=== PATIENT | male | born 1995 | race Caucasian/White ===

== ENCOUNTER 2024-04-27 05:58 | Emergency (ER) | payer OTHER, SELFPAY ==
--- NOTE | ~2024-04-27 | XR_ITS ---
XR humerus RT 04/27/2024 06:14 INDICATION: Right arm pain and bruising PROCEDURE: 2 views right humerus COMPARISON: No prior studies for comparison. FINDINGS: Fracture, dislocation or subluxation is not identified. The soft tissues appear within norm al limits. No foreign bodies are identified. IMPRESSION: 1: NO ACUTE BONE OR JOINT ABNORMALITY IDENTIFIED. Reviewed, dictated and finalized at location A. ER SHOP OPERATOR
--- OUTSIDE RECORDS SUMMARY | 2024-04-27 06:00 | XMS_ITS | Referral Summary ---
Author Organization [facility] Address [address] [place] [id number] Care Team Providers Care House Calls Nurse Name Role Phone Terrell Small MD Primary Care Provider Allergies No known active allergies Medications buPROPion XL (WELLBUTRIN XL) 150 mg 24 hr tabletIndications: Severe episode of recurrent major depressive disorder, without psychotic features (HCC),Attention deficit hyperactivity disorder (ADHD), predominantly hyperactive type Take 1 tablet (150 mg total) by mouth every morning 90 tablet 1 Active ARIPiprazole (ABILIFY) 15 mg tabletIndications: Bipolar affective disorder, currently depressed, moderate (CMS/HCC) (HCC) Take 1 tablet (15 mg total) by mouth daily 90 tablet 1 Active cholecalciferol (VITAMIN D-3) 2000 unit tabletIndications: Vitamin D Deficiency Take 1 tablet (2,000 Units total) by mouth daily Pleas take after finishing 12 weeks of high dose vitamin D (50,000 units/week) therapy 180 tablet 1 1 Active FLUoxetine (PROzac) 20 mg tabletIndications: Generalized anxiety disorder,Severe episode of recurrent major depressive disorder, without psychotic features (HCC),Bipolar affective disorder, currently depressed, moderate (CMS/HCC) (HCC) Take 1 tablet (20 mg total) by mouth daily Renewal provider is dr small 90 tablet 1 Active Active Problems Problem Noted Date Diagnosed Date Generalized anxiety disorder 04/05/2020 Assessment & Plan (10/05/2020 2:58 PM CDT): - big improvement in his symptoms - well controlled with current medications - currently on Prozac 20 mg daily - continue current medication Assessment & Plan (07/06/2020 11:40 PM CDT): - big improvement in his symptoms - well controlled with current medications - currently on Prozac 20 mg daily - continue current medication Assessment & Plan (05/07/2020 2:29 PM BODY PRESS OPERATOR): - improvement in his symptoms - still has some problem with attention - currently on Fluoxetine 10 mg daily --> increase to 20 mg daily - follow up in 3 months Bipolar affective disorder, currently depressed, moderate (CMS/[facility]) 04/05/2020 Assessment & Plan (10/07/2020 11:54 PM CDT): - doing much better with mood stability since the start of medications - he has hx of past hospitalizations - current medications Prozac 20mg daily, Wellbutrin XL 150mg daily, Abilify 15mg daily - happy with the outcomes - continue with current medications Assessment & Plan (07/06/2020 11:41 PM CDT): - doing much better with depression since the start of medications - he has hx of past hospitalizations - current medications Prozac 20mg daily, Wellbutrin XL 150mg daily, Abilift 15md daily - he has an appointment with psychiatry in mid July - happy with the outcomes Assessment & Plan (06/05/2020 8:25 AM BODY PRESS OPERATOR): - doing much better with depression since the start of medications - depression much better and no recent manic episodes - he has hx of past hospitalizations - continue with Abilify 10 mg daily - Increase current Fluoxetine from 10 mg daily to 20 mg daily - he has an appointment with psychiatry in mid June Assessment & Plan (05/07/2020 2:31 PM BODY PRESS OPERATOR): - states in the past he used to be on Fluoxetine 10 mg and Abilify 10 mg - doing much better with depression since the start of medications - he has hx of past hospitalizations - continue with Abilify 10 mg daily - Increase Fluoxetine from 10 mg daily to 20 mg daily - he has an appointment with psychiatry in 2 months Assessment & Plan (04/05/2020 9:53 AM BODY PRESS OPERATOR): - states in the past he used to be on Fluoxetine 10 mg and Abilify 10mg - he will need a psychiatrist, will place referral for this Severe episode of recurrent major depressive disorder, without psychotic features 04/05/2020 Assessment & Plan (10/05/2020 2:58 PM CDT): - significant improvement in depression since being on medications - long history of depression as well since childhood along with coexisting bipolar disorder - currently on Prozac 20 mg daily, Wellbutrin XL 150 mg daily - has appointment with psychiatry in mid July for assistance Assessment & Plan (07/06/2020 11:41 PM CDT): - significant improvement in depression since being on medications - long history of depression as well since childhood along with coexisting bipolar disorder - currently on Prozac 20 mg daily, Wellbutrin XL 150 mg daily - has appointment with psychiatry in mid July for assistance Assessment & Plan (06/05/2020 8:26 AM BODY PRESS OPERATOR): - significant improvement in depression since being on medications - long history of depression as well since childhood along with coexisting bipolar disorder - currently on Fluoxetine 10mg --> increase to 20mg daily to help with anxiety as well and focusing - no SI, HI, knows to seek help if needed by calling 911 - has appointment with psychiatry in mid june Assessment & Plan (05/07/2020 2:29 PM BODY PRESS OPERATOR): - significant improvement in depression since restarting his medications - currently on Fluoxetine 10mg --> increase to 20mg daily - long history of depression as well since childhood - he also has comorbid history of Bipolar disorder - no SI, HI, knows to seek help if needed by calling 911 - follow up in 3 months - has appointment with psychiatry in 2 months Assessment & Plan (04/05/2020 9:57 AM BODY PRESS OPERATOR): - severe on PHQ-9 - long history of depression as well since childhood - he also has comorbid history of Bipolar disorder - he used to be on Fluoxetine 10mg Asperger's syndrome 04/05/2020 Assessment & Plan (04/05/2020 9:52 AM BODY PRESS OPERATOR): - chronic condition - pretty high functioning - has completed college, pretty interactive but describes it as a hard work to talk to people Attention deficit hyperactiv ity disorder (ADHD), predominantly hyperactive type 04/05/2020 Assessment & Plan (10/07/2020 11:54 PM CDT): - he used to be on Ritalin as a child - he had a suicide attempt on 5th grade and was taken off the Ritalin - he has noticed difficulty with concentration and focusing and not with hyperactivity lately - some improvement with adequate treatment of anxiety and depression - still has some struggles - Addition of wellbutrin has helped his ADHD, pleased with it - continue with current therapy Assessment & Plan (07/06/2020 11:42 PM CDT): - he used to be on Ritalin as a child - he had a suicide attempt on 5th grade and was taken off the Ritalin - he has noticed difficulty with concentration and focusing and not with hyperactivity lately - some improvement with adequate treatment of anxiety and depression - still has some struggles - to be managed by psychiatry in upcoming viist Assessment & Plan (06/05/2020 8:24 AM BODY PRESS OPERATOR): - he used to be on Ritalin as a child - he had a suicide attempt on 5th grade and was taken off the Ritalin - he has noticed difficulty with concentration and focusing and not with hyperactivity lately - will start on Wellbutrin XL 150mg daily - discussed to increase his prozac to 20mg daily as well Assessment & Plan (04/05/2020 9:51 AM BODY PRESS OPERATOR): - he used to be on Ritalin as a child - he had a suicide attempt on 5th grade and was taken off the Ritalin - he has been able to function pretty well, finishing college - he does not feel like he needs to be medicated at this time for ADHD Vitamin D deficiency 04/05/2020 Overview (04/05/2020): - noted on 03/2020 with level of 19 Assessment & Plan (10/07/2020 11:55 PM CDT): - compliant with medication - finished 50 K international units vitamin D2 weekly for 12 weeks - he will need to be on daily low dose vitamin D as instructed, 2000 international units Vitamin D3 daily indefinetly Assessment & Plan (05/07/2020 2:13 PM BODY PRESS OPERATOR): - compliant with medication - he is now on the 50 K weekly for 12 weeks - knows to take 2000 units daily afterwards Immunizations Name Administration Dates Next Due DTP / HiB 1997,1997 Hep B, Adolescent or Pediatric 1997,1996 Influenza, Quadrivalent, Spl it, Preservative Free, Intramuscular 12/02/2019,01/10/2019 OPV 1997,1997 Pfizer SARS-CoV-2 Monovalent Vaccination (12+ Yrs) PURPLE 07/13/2020,06/22/2020 Social History Tobacco Use Types Packs/Day Years Used Date Smoking Tobacco: Never Smokeless Tobacco: Never Alcohol Use Standard Drinks/Week Comments Never 0 (1 standard drink = 0.6 oz pur e alcohol) AUDIT-C Answer Date Recorded Q1: How often do you have a drink containing alc ohol? Never 04/05/2020 Average Number of Drinks Not on file 021 Frequency of Binge Drinking Not on file 09/2020 PHQ-2 Answer Date Recorded PHQ-2 Total Score (If total score is 3 or more points, staff should administer the PHQ-9) 0 10/05/2020 Personal Safety Answer Date Recorded Getting School Help Needed Not on file 05/29 Sex and Gender Information Value Date Recorded Sex Assigned at Not on file Legal Sex Male 10:44 AM CDT Gender Identity Not on file Sexual Orientation Not on file Last Filed Vital Signs Vital Sign Reading Time Taken Comments Blood Pressure 120/70 10/05/2020 1:53 PM CDT Pulse 91 10/05/2020 1:53 PM CDT Temperature 35.9 ??C (96.6 ??F) 05/07/2020 1:54 PM CS T Respiratory Rate 12 10/05/2020 1:53 PM CDT Oxygen Saturation 97% 10/05/2020 1:53 PM CDT Inhaled Oxygen Concentration - - Weight 76.7 kg (169 lb 3.2 oz) 10/05/2020 1:53 P M CDT Height 181.5 cm (5' 11.46 ) 10/05/2020 1:53 PM C DT Body Mass Index 23.3 10/05/2020 1:53 PM CDT Plan of Treatment Not on file Insurance [facility] Address: [facility] [address] [place] [phone] Care Teams House Calls Nurse Relationship Specialty Start Date End Date Terrell Small MD PCP - General Family Medicine 04/05/20
--- OUTSIDE RECORDS SUMMARY | 2024-04-27 06:00 | XMS_ITS | Clinical Summary ---
Author Organization [facility] Address [address] [place] [phone] Care Team Providers Care Service Electrician Name Role Phone Terrell Small MD Primary [...] medication Assessment & Plan (05/07/2020 2:29 PM HOTEL RESERVATIONIST): - improvement in his symptoms - still has some problem with attention - currently on Fluoxetine 10 mg daily --> increase to 20 mg daily - follow up in 3 months Bipolar affective disorder, currently depressed, moderate (CMS/[facility]) 04/05/2020 Assessment & Plan (10/07/2020 11:54 PM [...] outcomes Assessment & Plan (06/05/2020 8:25 AM HOTEL RESERVATIONIST): - doing much better with depression since the start of medications - depression much better and no recent manic episodes - he has hx of past hospitalizations - continue with Abilify 10 mg daily - Increase current Fluoxetine from 10 mg daily to 20 mg daily - he has an appointment with psychiatry in mid June Assessment & Plan (05/07/2020 2:31 PM HOTEL RESERVATIONIST): - states in the past he used [...] months Assessment & Plan (04/05/2020 9:53 AM HOTEL RESERVATIONIST): - states in the past he used [...] assistance Assessment & Plan (06/05/2020 8:26 AM HOTEL RESERVATIONIST): - significant improvement in depression since being [...] june Assessment & Plan (05/07/2020 2:29 PM HOTEL RESERVATIONIST): - significant improvement in depression since restarting [...] months Assessment & Plan (04/05/2020 9:57 AM HOTEL RESERVATIONIST): - severe on PHQ-9 - long history of depression as well since childhood - he also has comorbid history of Bipolar disorder - he used to be on Fluoxetine 10mg Asperger's syndrome 04/05/2020 Assessment & Plan (04/05/2020 9:52 AM HOTEL RESERVATIONIST): - chronic condition - pretty high functioning [...] viist Assessment & Plan (06/05/2020 8:24 AM HOTEL RESERVATIONIST): - he used to be on Ritalin [...] well Assessment & Plan (04/05/2020 9:51 AM HOTEL RESERVATIONIST): - he used to be on Ritalin [...] indefinetly Assessment & Plan (05/07/2020 2:13 PM HOTEL RESERVATIONIST): - compliant with medication - he is now on the 50 K weekly for 12 weeks - knows to take 2000 units daily afterwards Immunizations Name Administration Dates Next Due DTP / HiB 1997,1997 Hep B, Adolescent or Pediatric 1997,1996 Influenza, Quadrivalent, Spl it, Preservative Free, Intramuscular 12/02/2019,01/10/2019 OPV 1997,1997 Pfizer SARS-CoV-2 Monovalent Vaccination (12+ Yrs) PURPLE 07/13/2020,06/22/2020 Medical History Medical History Date Comments Depression 2015 Family History Medical History Relation Name Comments No Known Problems Father No Known Problems Mother Relation Name Status Comments Father Alive Mother Alive Social History Tobacco Use Types Packs/Day Years [...] on file Sexual Orientation Not on file Obstetrics History Last Filed Vital Signs Vital Sign Reading [...] 10/05/2020 1:53 PM CDT Plan of Treatment Health Maintenance Due Date Last Done Comments Hepatitis C Screening 1997 DTaP/Tdap/Td Vaccine (3 - Tdap) 02/29/2008 1997, 1997 Varicella Vaccines (1 of 2 - 13+ 2-dose series) 2010 Regular Well Visit/Exam 18-64 2015 Depression Screening 10/05/2021 10/05/2020, 07/05/2020, 06/05/2020, Additional history exists Covid-19 Vaccine (2023- season) 2023 07/13/2020, 06/22/2020 Influenza Vaccine (#1) 2023 12/02/2019, 2018 HPV Vaccines Aged Out No longer eligi ble based on patient's age to complete this topic Pneumococcal vaccine <65 Aged Out No longer eligible based on patient's age to complete this topic Insurance [facility] Care Teams Service Electrician Relationship Specialty Start Date End Date Terrell Small MD PCP - General Family Medicine 04/05/20
[2024-04-27 06:03] VITALS: BP 126/77; PULSE 71; RESP 20; TEMP 36.6; O2SAT 99
--- OUTSIDE RECORDS SUMMARY | 2024-04-27 07:49 | XMS_ITS | Encounter Summary ---
[facility] Organization [facility] Address [address] [place] [address] Care Team Providers Care Medical Receptionist Medical Assistant Name Role Phone Opal Bailey DO Primary Care Provider [phone] Reason for Referral * Behavioral Health (Routine) - Closed Specialty Diagnoses / Procedures Referred By Parker t Referred To Contact Behavioral Health Diagnoses Bipolar 1 disorder (CMS/HHS/HCC) Fatoumata Garcia CRNP Phone: tel: fax: [facility] - Outpatient Services - [place] [address] [place] [address] [address] Phone: tel: fax: Referral ID Status Reason Start Date Expiration Date V isits Requested Visits Authorized [id number] Closed Specialty Services Required 12/16/2023 12/17/[phone] Encounter Details Date Type Department Care Team (Late st Contact Info) Description 12/16/2023 [facility] [address] [place] [address] [phone] Fatoumata Garcia CRNP [address] [place] [phone] Bipolar 1 disorder (CMS/HHS/HCC) (Primary Dx) Social History Tobacco Use Types Packs/Day Years Used Date Smoking Tobacco: Never Smokeless Tobacco: Never Comments:one cigarette. Rest was ? nicotine? Alcohol Use Standard Drinks/Week Comments Not Currently 2 (1 standard drink = 0.6 oz pure alcohol) Ill need my mom to answer this better. Panicking. [facility] Utilities Answer Date Recorded In the past 12 months has th e electric, gas, oil, or water company threatened to shut off services in your home? No 12/11/2023 AUDIT-C Answer Date Recorded Q1: How often do you have a drink containing alc ohol? Monthly or less 12/11/2023 Q2: How many drinks containi ng alcohol do you have on a typical day when you are drinking? 1 or 2 12/11/2023 Q3: How often do you have si x or more drinks on one occasion? Never 12/11/2023 Overall Financial Resource Strain (CARDIA) Answe r Date Recorded How hard is it for you to pa y for the very basics like food, housing, medical care, and heating? Not very hard 12/11/2023 PHQ-2 Answer Date Recorded PHQ-2 Total Score 2 10/16/2023 Hunger Vital Sign Answer Date Recorded Within the past 12 months, y ou worried that your food would run out before you got the money to buy more. Never true 12/11/19 24 Within the past 12 months, t he food you bought just didn't last and you didn't have money to get more. Never true 12/11/2023 PRAPARE - Transportation Answer Date Re corded In the past 12 months, has l ack of transportation kept you from medical appointments or from getting medications? No 11/28 In the past 12 months, has l ack of transportation kept you from meetings, work, or from getting things needed for daily living? No 12/11/2023 Housing Stability Vital Sign Answer Raul e Recorded In the last 12 months, was t here a time when you were not able to pay the mortgage or rent on time? No 05/11/2023 In the last 12 months, how many places have you lived? 1 05/11/2023 In the last 12 months, was t here a time when you did not have a steady place to sleep or slept in a long term (including now)? No 05/11/2023 Housing Stability Vital Sign Answer Raul e Recorded In the last 12 months, was t here a time when you were not able to pay the mortgage or rent on time? No 12/11/2023 In the past 12 months, how m any times have you moved where you were living? 0 12/11/2023 At any time in the past [address] [facility], were you homeless or living in a long term (including now)? No 12/11/2023 Sex and Gender Information Value Date Recorded Sex Assigned at Male 10/22/2021 2:31 PM EDT Legal Sex Male 8:46 AM EDT Gender Identity Male 10/22/2021 2:31 PM EDT Sexual Orientation Bisexual 12/19/2022 10 :03 AM EDT documented as of this encounter Plan of Treatment Upcoming Encounters Date Type Department Care Team (Late st Contact Info) Description 05/20/2024 1:00 PM EST Telemedicine [facility] [address] [place] [phone] Fatoumata Garcia CRNP [address] [place] [address] [phone] Scheduled Referrals Name Type Priority Associated Diagnoses Order Schedule Ambulatory Referral to Specialty Behavioral Health Outpatient Referral Routine Bipolar 1 disorder (CMS/HHS/HCC) Expected: 12/16/2023, Expires: 12/15/2025 documented as of this encounter Visit Diagnoses Diagnosis Bipolar 1 disorder (CMS/HHS/HCC)- Primary documented in this encounter Care Teams Medical Receptionist Medical Assistant Relationship Specialty Start Date End Date Opal Bailey DO [address] [facility] [place] [phone] PCP - General Family Medicine 10/01/22 documented as of this encounter
--- OUTSIDE RECORDS SUMMARY | 2024-04-27 07:49 | XMS_ITS | Referral Summary ---
[facility] [address] [place] [address] Care Team Providers Care Direct Selling Counselor Name Role Phone Opal Bailey DO Primary Care Provider [phone] Encounters Date Type Department Care Team Description 04/12/2024 3:00 PM EST Telemedicine [facility] [employer] [facility] [address] [place] [phone] Fatoumata Garcia CRNP Bipolar 1 disorder ([facility]/HCC) (Primary Dx); MARIA D (generalized anxiety disorder) 03/29/2024 11:20 AM EST Telemedicine [facility] [employer] [facility] [address] [place] [address] [phone] Fatoumata Garcia CRNP Bipolar 1 disorder ([facility]/HCC) (Primary Dx); MARIA D (generalized anxiety disorder) 03/21/2024 Telephone [facility] [employer] [facility] [address] [place] [address] [address] [phone] Fatoumata Garcia CRNP [facility] paperwork 03/21/2024 Telephone [facility] [employer] [facility] [address] [place] [phone] Fatoumata Garcia CRNP 03/16/2024 Plan of Care Documentation [facility] [employer] [facility] [address] [place] [phone] 03/16/2024 11:20 AM EST Telemedicine [facility] [employer] [facility] [address] [place] [address] [phone] Fatoumata Garcia CRNP Bipolar 1 disorder (CMS/HHS/HCC) (Primary Dx); Asperger syndrome (HHS/HCC); MARIA D (generalized anxiety disorder); Grief 03/15/2024 Plan of Care Documentation [facility] [place] [facility] [address] [place] [phone] 03/09/2024 2:00 PM EST Office Visit [facility] [address] [facility] [place] [phone] Shannon Kim CRNP Tinea pedis of right foot (Primary Dx); Viral URI 02/12/2024 11:00 AM EST Telemedicine [facility] - [place] [address] [place] [address] [phone] Meliton Quiñones PsyD Bipolar affective disorder, current episode hypomanic (CMS/HHS/HCC) (Primary Dx); Attention deficit hyperactivity disorder (ADHD), unspecified ADHD type; Asperger syndrome (HHS/HCC); MARIA D (generalized anxiety disorder) 02/05/2024 8:20 AM EST Telemedicine [facility] [address] [place] [phone] Fatoumata Garcia CRNP Bipolar 1 disorder (CMS/HHS/HCC) (Primary Dx); Anxiety; Attention deficit hyperactivity disorder (ADHD), unspecified ADHD type 02/03/2024 Telephone [facility] [address] [phone] Fatoumata Garcia CRNP [employer] FMLA Form 01/28/2024 8:30 AM EDT - 01/28/2024 11:59 PM EDT Hospital Encounter [facility] - Outpatient Services - [place] [address] [place] [address] [phone] Abrahan Rollins MD Bipolar affective disorder, current episode hypomanic (CMS/HHS/HCC) (Primary Dx); Bipolar 1 disorder (CMS/HHS/HCC) Discharge Disposition: Home or Self Care 01/27/2024 8:22 AM EDT - 01/27/2024 11:59 PM EDT Hospital Encounter [facility] - Outpatient Services - [place] [address] [place] [address] [phone] Abrahan Rollins MD Bipolar affective disorder, current episode hypomanic (CMS/HHS/HCC) (Primary Dx) Discharge Disposition: Home or Self Care from Last 3 Months Allergies No known active allergies Medications sildenafiL (VIAGRA) 25 mg tabletIndicatio ns:Other male erectile dysfunction Take 1 tablet (25 mg total) by mouth daily as needed for erectile dysfunction 30 tablet 1 10/28/19 24 Active famotidine (PEPCID) 20 mg tabletIndicatio ns:Gastroesopha geal reflux disease without esophagitis Take 1 tablet (20 mg total) by mouth 2 (two) times a day 180 tablet 2 10/28/19 24 Active ARIPiprazole (ABILIFY) 20 mg tabletIndicatio ns:Bipolar 1 disorder (CMS/HHS/HCC) Take 1 tablet (20 mg total) by mouth daily 90 tablet 01/28/20 24 Active lamoTRIgine (LaMICtal) 200 mg tablet Take 1 tablet (200 mg total) by mouth daily 90 tablet 02/05/20 24 025 Active FLUoxetine (PROzac) 40 mg capsule Take 1 capsule (40 mg total) by mouth daily 90 capsule 03/16/20 24 025 Active traZODone (DESYREL) 50 mg tabletIndicatio ns:Insomnia, unspecified type TAKE 1 TABLET BY MOUTH EVERY DAY AT BEDTIME NEEDED FOR SLEEP 90 tablet 04/05/19 25 Active traZODone (DESYREL) 50 mg tabletIndicatio ns:Insomnia, unspecified type TAKE 1 TABLET BY MOUTH NIGHTLY NEEDED FOR SLEEP 30 tablet 03/07/20 24 025 Discontinued Active Problems Problem Noted Date Diagnosed Date Gastroesophageal reflux disease without esophagi tis 08/27/2023 Tobacco use 08/27/2023 Vapes non-nicotine containing substance 02/12/20 Muscle weakness 09/02/2021 Other specified behavioral problem 09/02/2021 Palpitations 09/02/2021 Hyperopia 09/02/2021 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) 021 ADHD (attention deficit hyperactivity disorder) 1997 Immunizations Name Administration Dates Next Due DTP 1997,1997,1997 DTP / HiB 1997,1997,1997 DTaP 11/19/2001,06/27/1998 Flu Vaccine/Quad PF 12/30/2022,02/11/2022,2020 Hep A, Peds 09/10/2009,04/17/2006 Hep B, Adolescent or Pediatric 04/18/1998,1997,1997 Hib (HbOC) 06/27/1998 IPV 11/19/2001, 9,1997,04/25 Influenza, Split Virus, Trivalent, PF 01/01/2024 Influenza, Unspecified 12/30/2022 MMR 11/19/2001,06/27/1998 Meningococcal MCV4 03/03/2011 OPV 06/27/1998 PPD Test 09/05/2005 Pfizer 12YO and Older SARS-C OV-2 (Covid-19) Vaccine 01/01/2024,01/14/2023 Pfizer 12YO and Older SARS-COV-2(Covid-19)Bivalent Vaccine 09/15/2022 Pfizer SARS-COV-2 (COVID-19) Vaccine (Purple Cap) 04/10/2021,07/13/2020,06/22/2020 Tdap 09/02/2021,03/03/2011 Varicella 04/18/1998 Social History Tobacco Use Types Packs/Day Years Used Date Smoking Tobacco: Every Day Vaping Smokeless Tobacco: Never Tobacco Cessation:Ready to Q uit: Not Asked; Counseling Given: Not Answered Comments:one cigarette. Rest was nicotine Alcohol Use Standard Drinks/Week Comments Not Currently 2 (1 standard drink = 0.6 oz pur e alcohol) [facility] Utilities Answer Date Recorded In the past 12 months has th e electric, gas, oil, or water [employer] threatened to shut off services in your home? No 04/12/2024 Humiliation, Afraid, Rape, and Kick questionnair e Answer Date Recorded Within the last year, have y ou been afraid of your partner or ex-partner? No 12/23/2023 Within the last year, have y ou been humiliated or emotionally abused in other ways by your partner or ex-partner? No Within the last year, have y ou been kicked, hit, slapped, or otherwise physically hurt by your partner or ex-partner? No 12/23/2023 Within the last year, have y ou been raped or forced to have any kind of sexual activity by your partner or ex-partner? No 12/23/2023 Social Connection and Isolat ion Panel [NHANES] Answer Date Recorded In a typical week, how many times do you talk on the phone with family, friends, or neighbors? More than three times a week 12/23/2023 How often do you get togethe r with friends or relatives? Never 12/23/2023 How often do you attend chur ch or zoroastrianism services? Never 12/23/2023 Do you belong to any clubs o r organizations such as holiness groups, unions, fraternal or athletic groups, or school groups? No 12/23/2023 How often do you attend meet ings of the clubs or organizations you belong to? Never 12/23/2023 Are you , , di vorced, , never , or living with a partner? Never 12/23/2023 AUDIT-C Answer Date Recorded Q1: How often do you have a drink containing alc ohol? Monthly or less 04/12/2024 Q2: How many drinks containi ng alcohol do you have on a typical day when you are drinking? 1 or 2 04/12/2024 Q3: How often do you have si x or more drinks on one occasion? Less than monthly 04/12/2024 Overall Financial Resource Strain (CARDIA) Answe r Date Recorded How hard is it for you to pa y for the very basics like food, housing, medical care, and heating? Hard 04/12/2024 PHQ-2 Answer Date Recorded PHQ-2 Total Score 0 02/12/2024 [facility] [place] [facility] Occupat ional Health - Occupational Stress Questionnaire Answer Date Recorded Do you feel stress - tense, restless, nervous, or anxious, or unable to sleep at night because your mind is troubled all the time - these days? Only a little 12/23/2023 Exercise Vital Sign Answer Date Recorde d On average, how many days pe r week do you engage in moderate to strenuous exercise (like a brisk walk)? 7 days 12/23/2023 On average, how many minutes do you engage in exercise at this level? 60 min 12/23/2023 Hunger Vital Sign Answer Date Recorded Within the past 12 months, y ou worried that your food would run out before you got the money to buy more. Sometimes true Within the past 12 months, t he food you bought just didn't last and you didn't have money to get more. Never true PRAPARE - Transportation Answer Date Re corded In the past 12 months, has l ack of transportation kept you from medical appointments or from getting medications? Yes 03/30 In the past 12 months, has l ack of transportation kept you from meetings, work, or from getting things needed for daily living? Yes 04/12/2024 Housing Stability Vital Sign Answer Raul e [...] place to sleep or slept in a snf (including now)? No 05/11/2023 Housing Stability Vital Sign Answer Raul e Recorded In the last 12 months, was t here a time when you were not able to pay the mortgage or rent on time? No 04/12/2024 In the past 12 months, how m any times have you moved where you were living? 0 04/12/2024 At any time in the past 12 m onths, were you homeless or living in a snf (including now)? No 04/12/2024 Digital Health Literacy Answer Date Rec orded Do you use applications/prog jena (such as Zoom) on your cell phone, computer, or another electronic device (without asking for help from someone else)? Yes 12/23/2023 Can you set up a video chat using your cell phone, computer or another electronic device (without asking for help from someone else)? Yes 12/23/2023 Can you solve or figure out how to solve basic technical issues (without asking for help from someone else)? Yes Education Answer Date Recorded What is the highest level of school you have completed or the highest degree you have received? 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 Not on file Not on file Last Filed Vital Signs Vital Sign Reading Time Taken Comments Blood Pressure 132/82 03/09/2024 2:00 PM EST Pulse 70 03/09/2024 2:00 PM EST Temperature 36.8 ??C (98.2 ??F) 03/09/2024 2:00 PM ES T Respiratory Rate 18 03/09/2024 2:00 PM EST Oxygen Saturation 95% 03/09/2024 2:00 PM EST Inhaled Oxygen Concentration - - Weight 90.4 kg (199 lb 6.4 oz) 01/14/2024 9:05 AM EDT Height 182.9 cm (6') 12/23/2023 9:08 AM EDT Body Mass Index 27.04 12/23/2023 9:08 AM EDT Plan of Treatment Upcoming Encounters Date Type Department Care Team (Late st Contact Info) Description 05/20/2024 1:00 PM EST Telemedicine [facility] [address] [place] [phone] Fatoumata Garcia CRNP [address] [place] [phone] Goals Goal Patient Goal Type Associated Problems Recent Progress Patient-Stated? Author I want to be able to focus back in place to achieve goals General No Vicki Cole BS Note: Patient Strengths: Strengths: Recreational/lesiure/hobbies, Stable Housing, Open to change/help, Hopeful /Positive outlook, Confident/Determination, Plans/goals for the future Patient Barriers: Barriers: Limited family/friends support, Not connected to community/organization support, Financial have tools to take care of myself General No Vicki Cole BS Note: Patient Strengths: Strengths: Recreational/lesiure/hobbies, Stable Housing, Open to change/help, Hopeful /Positive outlook, Confident/Determination, Plans/goals for the future Patient Barriers: Barriers: Limited family/friends support, Not connected to community/organization support, Financial not have to feel that I need to think of every movement General No Vicki Cole BS Note: Patient Strengths: Strengths: Recreational/lesiure/hobbies, Stable Housing, Open to change/help, Hopeful /Positive outlook, Confident/Determination, Plans/goals for the future Patient Barriers: Barriers: Limited family/friends support, Not connected to community/organization support, Financial Procedures Procedure Name Priority Date/Time Associated Diagnosis Comments HEPATITIS C ANTIBODY W/RFL QNT RNA, PCR W/RFL GENOTYPE Routine 12/08/2023 4:05 PM EDT At risk for sexually transmitted disease due to partner with multiple partners HIV AG/AB PROGRESSIVE Routine 12/08/2023 4:05 PM EDT At risk for sexually transmitted disease due to partner with multiple partners from Last 3 Months or Most Recently Relevant to Health Maintenance Results * HIV Ag/Ab Progressive (12/08/2023 4:05 PM EDT) HIV Antigen/Antibody Nonreactive Nonreactive 12/09/2023 7:15 AM EDT [facility] Comment: HIV-1 antigen and HIV-1/HIV-2 antibodies were not detected. There is no laboratory evidence of an HIV infection. PLEASE NOTE: This information has been disclosed to you from records whose confidentiality may be protected by state law. If your state requires such protection, then the state law prohibits you from making any further disclosure of the information without the specific written consent of the person to whom it pertains, or as otherwise permitted by law. A general authorization for the release of medical or other information is NOT sufficient for this purpose. The performance of this assay has not been clinically validated in patients less than 2 years old. Blood Venous blood specimen / Unknown Venipuncture / Unknown 12/08/2023 4:05 PM EDT 12/08/2023 4:05 PM EDT [facility] BLOOD ORDERABLES Final Res ult Performing Organization Address [facility] Co de Phone Number [facility] [address] [address] * (ABNORMAL) Hepatitis C Antibody w/rfl Quant RNA, PCR w/rfl Genotype (12/08/2023 4:05 PM EDT) Hepatitis C Ab Reactive( A) Nonreactive 12/09/2023 9:21 AM EDT [facility] Comment: Hepatitis C Antibody was detected. Patient is presumed to be infected with Hepatitis C Virus. Hepatitis C Quant RNA, PCR w/ reflex to Genotype has been added to this specimen. Blood Venous blood specimen / Unknown Venipuncture / Unknown 12/08/2023 4:05 PM EDT 12/08/2023 4:05 PM EDT [facility] BLOOD ORDERABLES Final Res ult Performing Organization Address [facility] Co de Phone Number [facility] [address] [address] from Last 3 Months or Most Recently Relevant to Health Maintenance Insurance [facility] [place] [id number] Care Teams Direct Selling Counselor Relationship Specialty Start Date End Date Opal Bailey DO [address] [facility] [place] [phone] PCP - General Family Medicine 10/01/22
--- OUTSIDE RECORDS SUMMARY | 2024-04-27 07:49 | XMS_ITS | Clinical Summary ---
Author Organization [facility] Address [address] [place] [phone] Care Team Providers Care Combiner Name Role Phone Terrell Small MD Primary [...] medication Assessment & Plan (05/07/2020 2:29 PM LEADITE WORKER): - improvement in his symptoms - still has some problem with attention - currently on Fluoxetine 10 mg daily --> increase to 20 mg daily - follow up in 3 months Bipolar affective disorder, currently depressed, moderate (CMS/[facility]) 04/05/2020 Assessment & Plan (10/07/2020 11:54 PM [...] outcomes Assessment & Plan (06/05/2020 8:25 AM LEADITE WORKER): - doing much better with depression since the start of medications - depression much better and no recent manic episodes - he has hx of past hospitalizations - continue with Abilify 10 mg daily - Increase current Fluoxetine from 10 mg daily to 20 mg daily - he has an appointment with psychiatry in mid June Assessment & Plan (05/07/2020 2:31 PM LEADITE WORKER): - states in the past he used [...] months Assessment & Plan (04/05/2020 9:53 AM LEADITE WORKER): - states in the past he used [...] assistance Assessment & Plan (06/05/2020 8:26 AM LEADITE WORKER): - significant improvement in depression since being [...] june Assessment & Plan (05/07/2020 2:29 PM LEADITE WORKER): - significant improvement in depression since restarting [...] months Assessment & Plan (04/05/2020 9:57 AM LEADITE WORKER): - severe on PHQ-9 - long history of depression as well since childhood - he also has comorbid history of Bipolar disorder - he used to be on Fluoxetine 10mg Asperger's syndrome 04/05/2020 Assessment & Plan (04/05/2020 9:52 AM LEADITE WORKER): - chronic condition - pretty high functioning [...] viist Assessment & Plan (06/05/2020 8:24 AM LEADITE WORKER): - he used to be on Ritalin [...] well Assessment & Plan (04/05/2020 9:51 AM LEADITE WORKER): - he used to be on Ritalin [...] indefinetly Assessment & Plan (05/07/2020 2:13 PM LEADITE WORKER): - compliant with medication - he is [...] patient's age to complete this topic Insurance [facility] CLAIMS Care Teams Combiner Relationship Specialty Start Date End Date Terrell Small MD PCP - General Family Medicine 04/05/20
--- OUTSIDE RECORDS SUMMARY | 2024-04-27 07:49 | XMS_ITS | Clinical Summary ---
Author Organization [facility] Address [address] [place] [address] Care Team Providers Care Oakes Machine Operator Name Role Phone Opal Bailey DO Primary Care Provider [phone] Allergies No known active allergies Medications sildenafiL [...] (ABILIFY) 20 mg tabletIndicatio ns:Bipolar 1 disorder ([facility]) Take 1 tablet (20 mg total) by [...] disorder 09/02/2021 Allergic rhinitis 09/02/2021 Asperger syndrome ([facility]/HCC) 08/22/2021 Emotional lability 07/11/2021 Bipolar affective disorder ([facility]/HCC) 021 ADHD (attention deficit hyperactivity disorder) 1997 Encounters Date Type Department Care Team Description 04/12/2024 3:00 PM EST Telemedicine [facility] [address] [place] [address] [phone] Fatoumata Garcia CRNP Bipolar 1 disorder ([facility]) (Primary Dx); MARIA D (generalized anxiety disorder) 03/29/2024 11:20 AM EST Telemedicine [facility] [address] [place] [address] [phone] Fatoumata Garcia CRNP Bipolar 1 disorder ([facility]) (Primary Dx); MARIA D (generalized anxiety disorder) 03/21/2024 Telephone [facility] [address] [place] [address] [phone] Fatoumata Garcia CRNP [place] paperwork 03/21/2024 Telephone [facility] [address] [place] [phone] Fatoumata Garcia CRNP 03/16/2024 11:20 AM EST Telemedicine [facility] [address] [place] [phone] Fatoumata Garcia CRNP Bipolar 1 disorder ([facility]/HCC) (Primary Dx); Asperger syndrome ([facility]); MARIA D (generalized anxiety disorder); Grief 03/16/2024 Plan of Care Documentation [facility] [address] [place] [phone] 03/15/2024 Plan of Care Documentation [facility] [address] [place] [phone] 03/09/2024 2:00 PM EST Office Visit [facility] [address] [facility] [place] [phone] Shannon Kim CRNP Tinea pedis of right foot (Primary Dx); Viral URI 02/12/2024 11:00 AM EST Telemedicine [facility] [address] [place] [address] [phone] Meliton Quiñones PsyD Bipolar affective disorder, current episode hypomanic (CMS/HHS/HCC) (Primary Dx); Attention deficit hyperactivity disorder (ADHD), unspecified ADHD type; Asperger syndrome (HHS/HCC); MARIA D (generalized anxiety disorder) 02/05/2024 8:20 AM EST Telemedicine [facility] [address] [place] [address] [address] [phone] Fatoumata Garcia CRNP Bipolar 1 disorder (CMS/HHS/HCC) (Primary Dx); Anxiety; Attention deficit hyperactivity disorder (ADHD), unspecified ADHD type 02/03/2024 Telephone [facility] [address] [place] [address] [phone] Fatoumata Garcia CRNP [employer] FMLA Form 01/28/2024 8:30 AM EDT - 01/28/2024 11:59 PM EDT Hospital Encounter [facility] [address] [place] [address] [phone] Abrahan Rollins MD Bipolar affective disorder, current episode hypomanic (CMS/HHS/HCC) (Primary Dx); Bipolar 1 disorder (CMS/HHS/HCC) Discharge Disposition: Home or Self Care 01/27/2024 8:22 AM EDT - 01/27/2024 11:59 PM EDT Hospital Encounter [facility] [place] [facility] [address] [place] [address] [phone] Abrahan Rollins MD Bipolar affective disorder, current episode hypomanic ([facility]) (Primary Dx) Discharge Disposition: Home or Self Care from Last 3 Months Immunizations Name Administration Dates Next Due DTP [...] (Purple Cap) 04/10/2021,07/13/2020,06/22/2020 Tdap 09/02/2021,03/03/2011 Varicella 04/18/1998 Family History Medical History Relation Comments ADD / ADHD Brother PDD Brother Cancer Mother OCD Sister Relation Status Comments Brother Mother Sister Social History Tobacco Use Types Packs/Day Years Used Date Smoking Tobacco: Every Day Vaping Smokeless Tobacco: Never Tobacco Cessation:Ready to Q uit: Not Asked; Counseling Given: Not Answered Comments:one cigarette. Rest was nicotine Alcohol Use Standard Drinks/Week Comments Not Currently 2 (1 standard drink = 0.6 oz pur e alcohol) [facility] Utilities Answer Date Recorded In the past [...] often do you attend chur ch or lutheran services? Never 12/23/2023 Do you belong to any clubs o r organizations such as synagogue groups, unions, fraternal or athletic groups, or [...] Date Recorded PHQ-2 Total Score 0 02/12/2024 [facility] - Occupational Stress Questionnaire Answer Date Recorded [...] place to sleep or slept in a penitentiary (including now)? No 05/11/2023 Housing Stability Vital Sign Answer Raul e Recorded In the last 12 months, was t here a time when you were not able to pay the mortgage or rent on time? No 04/12/2024 In the past 12 months, how m any times have you moved where you were living? 0 04/12/2024 At any time in the past 12 m [facility], were you homeless or living in a penitentiary (including now)? 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 Not on file Not [...] kg (199 lb 6.4 oz) 01/14/2024 9:05 A M EDT Height 182.9 cm (6') 12/23/2023 9:08 AM EDT Body Mass Index 27.04 12/23/2023 9:08 AM EDT Plan of Treatment Upcoming Encounters Date Type Department Care Team (Late st Contact Info) Description 05/20/2024 1:00 PM EST Telemedicine [facility] [address] [place] [address] [phone] Fatoumata Garcia CRNP [address] [place] [address] [phone] Health Maintenance Due Date Last Done Comments Pneumococcal 0-49 years (1 of 2 - PCV) 02/29/2016 Height Check 03/30/2024 12/23/2023 Weight Check 03/30/2024 01/14/2024 Tobacco Cessation Counseling 12/02/2024 12/03/2023 DTaP,Tdap,and Td Vaccines (8 - Td or Tdap) 09/03/2031 09/02/2021, 03/03/2011, 11/19/2001, Additional history exists Zoster Vaccine (1 of 2) 2047 Hepatitis B Vaccines Completed 04/18/1998, 1997, 1997 MMR Vaccines Completed 11/19/2001, 06/27/1998 Hepatitis A Vaccines Completed 09/10/2009, 04/17/19 07 Meningococcal ACWY Vaccine Aged Out 03/03/2011 N o longer eligible based on patient's age to complete this topic HIV Screening Completed 12/08/2023, 06/28, 12/17/2022 Hepatitis C Screening Completed 12/08/2023 , 07/17/2023, 12/17/2022 Influenza Vaccine Completed 01/01/2024, , 12/30/2022, Additional history exists SARS-CoV-2 (COVID-19) Completed 01/01/2024 , 01/14/2023, 09/15/2022, Additional history exists Tobacco Use Screening Completed 04/12/2024 HPV Vaccines Aged Out No longer eligi ble based on patient's age to complete this topic Meningococcal B Vaccine Aged Out No l onger eligible based on patient's age to complete this topic Goals Goal Patient Goal Type Associated Problems Recent Progress Patient-Stated? Author I want to be able to focus back in place to achieve goals General No Vicki Cole, BS Note: Patient Strengths: Strengths: Recreational/lesiure/hobbies, Stable [...] Antigen/Antibody Nonreactive Nonreactive 12/09/2023 7:15 AM EDT [facility] Comment: HIV-1 antigen and HIV-1/HIV-2 [...] 4:05 PM EDT 12/08/2023 4:05 PM EDT Kisha Butler DO LAB BLOOD ORDERABLES Final Res ult Performing Organization Address City/[facility] Co de Phone Number [facility] [address] [place] [phone] * (ABNORMAL) Hepatitis C Antibody w/rfl Quant RNA, PCR w/rfl Genotype (12/08/2023 4:05 PM EDT) Hepatitis C Ab Reactive( A) Nonreactive 12/09/2023 9:21 AM EDT [facility] Comment: Hepatitis C Antibody was detected. Patient is presumed to be infected with Hepatitis C Virus. Hepatitis C Quant RNA, PCR w/ reflex to Genotype has been added to this specimen. Blood Venous blood specimen / Unknown Venipuncture / Unknown 12/08/2023 4:05 PM EDT 12/08/2023 4:05 PM EDT [facility] BLOOD ORDERABLES Final Res ult Performing Organization Address [facility] Co de Phone Number [facility] [address] [place] [phone] from Last 3 Months or Most Recently Relevant to Health Maintenance [place] [address] [id number] [facility] Care Teams Oakes Machine Operator Relationship Specialty Start Date End Date Opal Bailey DO [address] [facility] [place] [phone] PCP - General Family Medicine 10/01/22
--- OUTSIDE RECORDS SUMMARY | 2024-04-27 07:49 | XMS_ITS | Referral Summary ---
Author Organization [facility] Address [address] [place] [id number] Care Team Providers Care Street Car Inspector Name Role Phone Terrell Small MD Primary [...] medication Assessment & Plan (05/07/2020 2:29 PM TELECOMMUNICATOR SUPERVISOR): - improvement in his symptoms - still has some problem with attention - currently on Fluoxetine 10 mg daily --> increase to 20 mg daily - follow up in 3 months Bipolar affective disorder, currently depressed, moderate (CMS/[facility]) 04/05/2020 Assessment & Plan (10/07/2020 11:54 PM [...] outcomes Assessment & Plan (06/05/2020 8:25 AM TELECOMMUNICATOR SUPERVISOR): - doing much better with depression since the start of medications - depression much better and no recent manic episodes - he has hx of past hospitalizations - continue with Abilify 10 mg daily - Increase current Fluoxetine from 10 mg daily to 20 mg daily - he has an appointment with psychiatry in mid June Assessment & Plan (05/07/2020 2:31 PM TELECOMMUNICATOR SUPERVISOR): - states in the past he used [...] months Assessment & Plan (04/05/2020 9:53 AM TELECOMMUNICATOR SUPERVISOR): - states in the past he used [...] assistance Assessment & Plan (06/05/2020 8:26 AM TELECOMMUNICATOR SUPERVISOR): - significant improvement in depression since being [...] june Assessment & Plan (05/07/2020 2:29 PM TELECOMMUNICATOR SUPERVISOR): - significant improvement in depression since restarting [...] months Assessment & Plan (04/05/2020 9:57 AM TELECOMMUNICATOR SUPERVISOR): - severe on PHQ-9 - long history of depression as well since childhood - he also has comorbid history of Bipolar disorder - he used to be on Fluoxetine 10mg Asperger's syndrome 04/05/2020 Assessment & Plan (04/05/2020 9:52 AM TELECOMMUNICATOR SUPERVISOR): - chronic condition - pretty high functioning [...] viist Assessment & Plan (06/05/2020 8:24 AM TELECOMMUNICATOR SUPERVISOR): - he used to be on Ritalin [...] well Assessment & Plan (04/05/2020 9:51 AM TELECOMMUNICATOR SUPERVISOR): - he used to be on Ritalin [...] indefinetly Assessment & Plan (05/07/2020 2:13 PM TELECOMMUNICATOR SUPERVISOR): - compliant with medication - he is [...] Plan of Treatment Not on file Insurance [facility] CLAIM[facility] Care Teams Street Car Inspector Relationship Specialty Start Date End Date Terrell Small MD PCP - General Family Medicine 04/05/20
--- NOTE | 2024-04-27 08:00 | ED.GENADULT ---
HPI - General Adult General Chief complaint: Fall Stated complaint: right arm pain after glf Time Seen by Provider: 04/27/24 06:55 History of Present Illness HPI narrative: 29-year-old male presented to the emergency department for evaluation for right shoulder pain. Patient reports approximately 2 weeks ago he had a fall on the ice and injured his right arm. Patient denies striking his head denies loss consciousness. Patient states he has had some pain that radiates from the shoulder down the right arm. Patient denies any associated numbness or weakness. Related Data Allergies Allergy/AdvReac Type Severity Reaction Status Date / Time No Known Allergies Allergy Unverified 11/27/17 11:57 Review of Systems Review of Systems: All systems reviewed & are unremarkable except as noted in HPI and below Exam Narrative: APPEARANCE: Well appearing, no pain, no distress, well-nourished. HEAD: normocephalic, atraumatic. EYES: PERRLA/EOMI, conjunctivae clear. NOSE: Normal no drainage EARS:TMS clear with good light reflex. THROAT: Pharynx clear, no exudate. NECK: Supple. No adenopathy, no masses. RESPIRATORY: Airway patent, respirations nonlabored. Clear to auscultation bilaterally, no rales, rhonchi, wheezing. CARDIOVASCULAR: Regular rate and rhythm without murmurs rubs or gallops. ABDOMINAL: Soft, nontender, nondistended, normal bowel sounds MUSCULOSKELETAL: Tenderness at right AC joint, patient does have normal range of motion NEURO: Alert. Cranial nerves II through XII intact. Grossly intact SKIN: Warm, dry. Normal Color Course Vital Signs Vital signs: Vital Signs Temperature 97.8 F 04/27/24 06:03 Pulse Rate 71 04/27/24 06:03 Respiratory Rate 20 04/27/24 06:03 Blood Pressure 126/77 04/27/24 06:03 Pulse Oximetry 99 04/27/24 06:03 Temperature 97.9 F 04/27/24 08:23 Pulse Rate 62 04/27/24 08:23 Respiratory Rate 16 04/27/24 08:23 Blood Pressure 108/73 04/27/24 08:23 Pulse Oximetry 99 04/27/24 08:23 Medical Decision Making [facility] Narrative Medical decision making narrative: 29-year-old male presenting to the emergency department for evaluation for right shoulder pain. X-rays were negative for acute fracture dislocation. Patient has normal range of motion of the right arm. Suspect patient may have a rotator cuff injury versus possible AC joint strain. Patient will be started on a Medrol Dosepak and patient will be provided a pouch sling for comfort. Differential Diagnosis Differential Diagnosis: Shoulder strain, cervical radiculopathy Vital Signs Vital Signs: Vital Signs Temperature 97.8 F 04/27/24 06:03 Pulse Rate 71 04/27/24 06:03 Respiratory Rate 20 04/27/24 06:03 Blood Pressure 126/77 04/27/24 06:03 Pulse Oximetry 99 04/27/24 06:03 Temperature 97.9 F 04/27/24 08:23 Pulse Rate 62 04/27/24 08:23 Respiratory Rate 16 04/27/24 08:23 Blood Pressure 108/73 04/27/24 08:23 Pulse Oximetry 99 04/27/24 08:23 Imaging Data Radiologist's impression: Impressions Humerus X-Ray 04/27/24 06:17 IMPRESSION: 1: NO ACUTE BONE OR JOINT ABNORMALITY IDENTIFIED. Discharge Plan Discharge Clinical Impression: Arm pain, right Patient Disposition: Home, Self-Care Condition: Stable Instructions: Antibiotic Form, How to Use a Sling (ED), Arm Pain (ED) Additional Instructions: sling for comfort. Tylenol for pain control. Medrol Dosepak as directed until completed. Have close follow-up with a primary care physician and with Orthopedics. If you have any worsening symptoms then please call or return to the emergency department. Patient Language: Burundian Prescriptions: New methylprednisolone [Medrol (Will)] 4 mg tablets,dose pack See Rx Instructions PO .COMPLEX Qty: 21 0RF Rx Instructions: for 6 days Follow-up/Referrals: Mario Alberto Gonzalez MD [Physician] - Leonel Jones MD [Physician] - UNKNOWN,DOCTOR [Primary Care Provider] -
[2024-04-27 08:23] VITALS: BP 108/73; PULSE 62; RESP 16; TEMP 36.6; O2SAT 99
== END 2024-04-27 08:26 | disposition home or self-care (01) ==
PROVIDERS: Emergency Provider Emergency Medicine
DX: S49.91XA Unspecified injury of right shoulder and upper arm, initial encounter (principal); W00.0XXA Fall on same level due to ice and snow, initial encounter
CPT/HCPCS: 73060; 99283; A4565